=== PATIENT | male | born 1970 | race Caucasian/White ===

== ENCOUNTER 2019-10-12 10:54 | Emergency (ER) | payer OTHER ==
[~2019-10-12] VITALS: Ht 185.4 cm; Wt 110.0 kg
[2019-10-12 11:55] LABS: BASOPHILS # (AUTO) 0.02 x10^3/uL (0-0.1); BASOPHILS % (AUTO) 0 % (0-1); EOSINOPHILS # (AUTO) 0.18 x10^3/uL (0-0.4); EOSINOPHILS % (AUTO) 4 % (1-7); LYMPHOCYTES % (AUTO) 27 % (22-44); MD NO; MEAN CORPUSCULAR HEMOGLOBIN 29.3 pg (27.5-34.5); MEAN CORPUSCULAR HGB CONC 33.5 g/dL (33.2-36.2); MEAN CORPUSCULAR VOLUME 87.6 fL (81-97); MEAN PLATELET VOLUME 8.1 fL (7.4-10.4); MONOCYTES # (AUTO) 0.46 x10^3/uL (0.2-0.8); MONOCYTES % (AUTO) 10 % (2-9); NEUTROPHILS # (AUTO) 2.67 x10^3/uL (1.8-6.8); NEUTROPHILS % (AUTO) 59 % (42-75); PLATELET COUNT 235 x10^3/uL (130-400); RED BLOOD COUNT 5.11 x10^6/uL (4.38-5.82); RED CELL DISTRIBUTION WIDTH 13.1 % (9.4-14.8)
--- NOTE | 2019-10-12 12:00 | NUR ---
RESTING COMFORTABLY ON GURNEY. DENIES CP. RESP EVEN & UNLABORED, SPEECH CLEAR, SKIN WNL. CARDIAC & VS MONITORING CONTINUING.
[2019-10-12 12:08] LABS: ALBUMIN 3.8 g/dL (3.4-5.0); ANION GAP 7 mmol/L (5-15); CALCIUM 8.5 mg/dL (8.5-10.1); CHLORIDE 111 mmol/L (98-107); CREATININE 1.04 mg/dL (0.7-1.3)
[2019-10-12 12:11] LABS: TROPONIN I < 0.015 ng/mL (0.000-0.045)
--- NOTE | 2019-10-12 12:23 | NUR ---
AMBULATORYT OT & FROM [facility] W/OUT INCIDENT; GAIT STEADY; DENIED CP, LIGHTHEADEDNESS, DIZZINESS. VOIDED SPECIMEN PROVIDED: CLEAR, YELLOW
[2019-10-12] MEDS ORDERED: SODIUM CHLORIDE FLUSH 10ML SYR IVF ONE (12:30)
[2019-10-12] MEDS ORDERED: IBUP-1222 PO (12:31)
[2019-10-12 14:00] VITALS: BP 113/75
[2019-10-12 14:26] LABS: TROPONIN I < 0.015 ng/mL (0.000-0.045)
== END 2019-10-12 14:53 | disposition home or self-care (01) ==
LOC: ED 11:29
DX: R07.89 Other chest pain (principal); R20.0 Anesthesia of skin; I45.10 Unspecified right bundle-branch block; I44.4 Left anterior fascicular block; Z87.891 Personal history of nicotine dependence
CPT/HCPCS: 36415; 71045; 80048; 82040; 84484; 85025; 93005; 99285